=== PATIENT | male | born 1975 | race African-American/Black ===

== ENCOUNTER 2019-11-25 16:11 | Observation (INO) | payer MEDICARE ==
--- NOTE | 2019-11-25 16:55 | CT ---
CT head noncontrast HISTORY: Hypertension. Headaches. Paresthesias. FINDINGS: There is no evidence of acute intracranial hemorrhage or infarct. The ventricles appear nor mal in size, shape and position. There is no mass effect or shift of midline structures. Visualized paranasal sinuses remain well aerated. IMPRESSION : No abnormalities are demonstrated.
[2019-11-25 16:56] LABS: #Basophils 0.1 thou/uL (0.0-0.2); #Eosinphils 0.1 thou/uL (0.0-0.7); #Lymphocytes 1.3 thou/uL (1.20-3.40); #Monocytes 0.6 thou/uL (0.11-0.59); #Neutrophils 4.1 thou/uL (1.40-6.50); %Basophils 0.8 % (0.0-1.0); %Eosinophils 1.7 % (0.0-10.0); %Lymphocytes 21.8 % (21.0-51.0); %Monocytes 8.9 % (0.0-10.0); %Neutrophils 66.8 % (42.0-75.0); Hemoglobin 13.5 g/dL (14.0-18.0); Mean Corpuscular HGB CONC 33.3 g/dL (32.0-36.0); Mean Corpuscular Hemoglobin 24.1 pg (27.0-31.0); Mean Corpuscular Volume 72.4 fL (78.0-98.0); Mean Platelet Volume 9.1 fL (7.4-10.4); Platelet Count 224 thou/uL (130-400); RBC Distribution Width 14.5 % (11.5-14.5); Red Blood Cell (RBC) Count 5.63 mill/uL (4.70-6.10); White Blood Cell (WBC) Count 6.2 thou/uL (4.8-10.8)
[2019-11-25 17:01] LABS: PTT 26.1 SEC (22.9-36.1); Prothrombin Time 12.7 sec (12.0-14.7)
--- NOTE | 2019-11-25 17:15 | RAD ---
CHEST ONE VIEW: 11/25/19 HISTORY: Pain. COMPARISON: None. FINDINGS: The lungs are clear. No pneumothorax or effusion. The cardiac silhouette and mediastinal contours are within normal limits. No acute osseous abnormality. IMPRESSION: No acute intrathoracic abnormality. POS: HOME
[2019-11-25 17:16] LABS: Bilirubin, Total 0.3 mg/dL (0.2-1.2)
[2019-11-25 17:19] LABS: ALT (SGPT) 39 U/L (8-55); AST (SGOT) 29 U/L (5-34); Albumin 3.5 g/dL (3.5-5.0); Alkaline Phosphatase 70 U/L (40-110); Anion Gap 13 mmol/L (10-20); BUN (Urea Nitrogen) 7 mg/dL (8.9-20.6); CK (CPK) 579 U/L (30-200); Calc. Creatinine Clearance 0 mL/min (70-130); Calcium 8.6 mg/dL (7.8-10.44); Carbon Dioxide 24 mmol/L (22-29); Chloride 106 mmol/L (98-107); Estimated GFR-MDRD 82; Globulin 2.4 g/dL (2.4-3.5); Glucose 189 mg/dL (70-105); Potassium 3.3 mmol/L (3.5-5.1); Protein, Total 5.9 g/dL (6.0-8.3); Sodium 140 mmol/L (136-145)
--- NOTE | 2019-11-25 18:02 | PDOC.FPRHP ---
- History of Present Illness Chief Complaint: L sided weakness and altered sensation History of Present Illness: 44 y/o M with pmhx of diet controlled DM II, Schizophrenia managed by [facility], HTN , and OA, presents to ED from clinic after having the complaint of intermittent L sided weakness and altered sensation. The symptoms started X3 days ago. Today he had weakness and decreased sensation on L side for the first hour upon awakening. The symptoms came back about 2 hours later, lasting 30 minutes that time. He is symptom free upon evaluation. Pt c/o occipital MONTENEGRO, and CP associated with diaphoresis, SOB, N and V. He describes the CP as crushing. He currently does not have any CP. Pt states he takes iron pills, but has been having black, tarry diarrhea stools the past few days. Denies any slurred speech or blurred vision. c/o dizziness when bending over that has been present for a long time. ED course: CT head: no abnormalities. CXP: no acute findings CK 579 h/h 13.5/40.7 MCV 72 K 3.3 - Allergies/Adverse Reactions Allergies Allergy/AdvReac Type Severity Reaction Status Date / Time mustard Allergy Verified 11/25/19 21:54 strawberry Allergy Verified 11/25/19 21:54 raisins Allergy Uncoded 11/25/19 21:54 - Home Medications Medication Instructions Recorded Confirmed Type Aspirin [Ecotrin] 81 mg PO DAILY 11/25/19 11/25/19 History Benztropine [Cogentin] 1 mg PO [facility] 11/25/19 11/25/19 History Benztropine [Cogentin] 1.5 tab PO DAILY 11/25/19 11/25/19 History Benztropine [Cogentin] 2 tab PO 11/25/19 11/25/19 History Haloperidol [Haldol] 0.5 tab PO DAILY 11/25/19 11/25/19 History Haloperidol [Haldol] 1 tab PO 11/25/19 11/25/19 History Haloperidol [Haldol] 5 mg PO [facility] 11/25/19 11/25/19 History Sertraline HCl [Zoloft] 1 tab PO TID 11/25/19 11/25/19 History Ziprasidone HCl [Geodon] 1 cap PO DAILY 11/25/19 11/25/19 History Ziprasidone HCl [Geodon] 2 cap PO HS 11/25/19 11/25/19 History Ziprasidone HCl [Geodon] 80 mg PO ACHS 11/25/19 11/25/19 History hydrOXYzine HCl [Hydroxyzine HCl] 2 tab PO HS 11/25/19 11/25/19 History hydrOXYzine HCl [Hydroxyzine HCl] 50 mg PO HS 11/25/19 11/25/19 History - History PMHx: schizophrenia, HTN, Diet controlled DM II, OA bilateral knees PSHx: hernia repair, R-wrist sx FHx: brothers: at age 58 and 41 of NC. Father and Aunt: schizophrenia Social: smoked 2 ppd for 25 years. Smokes 3 cig a day the past year. Denies etoh use in past 15 years, used to drink heavily. Denies drug use. - Review of Systems General: reports: fatigue. denies: fever/chills Eyes: denies: eye pain, vision changes ENT: denies: nasal congestion Respiratory: reports: shortness of breath. denies: cough, exercise intolerance Cardiovascular: reports: chest pain, edema. denies: palpitation Gastrointestinal: reports: nausea, vomiting, diarrhea. denies: constipation, abdominal pain Skin: denies: rashes Musculoskeletal: reports: swelling (BLE), arthritis/arthralgias (B knees) Neurological: reports: numbness, weakness. denies: syncope, seizure Psychological: reports: other (hx of schizophrenia) - Vital signs BP: 127/80 HR: 110 RR: 18 Tmax: 98.5 F Pox: 98% on RA Wt: 148.7 KG - Physical Exam Constitutional: NAD, awake, alert and oriented HEENT: PERRLA, EOMI, conjunctiva clear, no scleral icterus, grossly normal vision, grossly normal hearing, MMM Neck: supple, trachea midline Heart: no murmurs/rubs/gallops, pulses present, other (110 HR, with regular rhythm distant heart sounds) Lungs: CTAB, no respiratory distress, good air movement, no rales/rhonchi, no wheezing, no retractions Abdomen: soft, non-tender, bowel sounds present Musculoskeletal: normal structure, normal tone, ROM grossly normal Neurological: CN II-XII intact -Neurological: Diminished sensation to L hand. Sensation intact in other extremities 4/5 strength in LLE. Skin: no rash/lesions, good turgor, capillary refill <2 seconds Heme/Lymphatic: no unusual bruising or bleeding Psychiatric: normal mood and affect, good judgment and insight, intact recent and remote memory FMR H&P: Results - Labs Result Diagrams: 11/25/19 16:38 11/26/19 04:16 Lab results: WBC 6.2 thou/uL (4.8-10.8) 11/25/19 16:38 Hgb 13.5 g/dL (14.0-18.0) L 11/25/19 16:38 Hct 40.7 % (42.0-52.0) L 11/25/19 16:38 MCV 72.4 fL (78.0-98.0) L 11/25/19 16:38 Plt Count 224 thou/uL (130-400) 11/25/19 16:38 Neutrophils % 66.8 % (42.0-75.0) 11/25/19 16:38 Sodium 140 mmol/L (136-145) 11/25/19 16:38 Potassium 3.3 mmol/L (3.5-5.1) L 11/25/19 16:38 Chloride 106 mmol/L (98-107) 11/25/19 16:38 Carbon Dioxide 24 mmol/L (22-29) 11/25/19 16:38 BUN 7 mg/dL (8.9-20.6) L 11/25/19 16:38 Creatinine 1.00 mg/dL (0.7-1.3) 11/25/19 16:38 Glucose 189 mg/dL (70-105) H 11/25/19 16:38 Calcium 8.6 mg/dL (7.8-10.44) 11/25/19 16:38 Total Bilirubin 0.3 mg/dL (0.2-1.2) 11/25/19 16:38 AST 29 U/L (5-34) 11/25/19 16:38 ALT 39 U/L (8-55) 11/25/19 16:38 Alkaline Phosphatase 70 U/L (40-110) 11/25/19 16:38 Creatine Kinase 579 U/L (30-200) H 11/25/19 16:38 Serum Total Protein 5.9 g/dL (6.0-8.3) L 11/25/19 16:38 Albumin 3.5 g/dL (3.5-5.0) 11/25/19 16:38 - EKG Interpretation EKG: NSR - Radiology Interpretation CT scan - head Status: report reviewed by me (no abnormalities) Chest x-ray Status: report reviewed by me (no acute findings) FMR H&P: A/P - Problem List (1) TIA (transient ischemic attack) Current Visit: Yes Status: Acute Code(s): G45.9 - TRANSIENT CEREBRAL ISCHEMIC ATTACK, UNSPECIFIED (2) Hx of essential hypertension Current Visit: Yes Status: Chronic Code(s): Z86.79 - PERSONAL HISTORY OF OTHER DISEASES OF THE CIRCULATORY SYSTEM (3) Diet-controlled type 2 diabetes mellitus Current Visit: Yes Status: Chronic Code(s): E11.9 - TYPE 2 DIABETES MELLITUS WITHOUT COMPLICATIONS (4) Schizophrenia Current Visit: Yes Status: Chronic Code(s): F20.9 - SCHIZOPHRENIA, UNSPECIFIED (5) Osteoarthritis of knees, bilateral Current Visit: Yes Status: Chronic Code(s): M17.0 - BILATERAL PRIMARY OSTEOARTHRITIS OF KNEE - Plan 44 y/o M admitted to [facility] for TIA/CVA Rule Out. 1. TIA, resolved - L sided weakness and parasthesias, resolved - MRI, TTE, head and neck CTA ordered - CT head no abnormalities - FLP, A1C ordered - started on 325 asa and statin 2. Hx of Schizophrenia - continue home medications - managed outpt by [facility] - stable on meds 3. Hx of Diet controlled DM II - CC diet - A1C ordered 4. Hx of HTN - not currently on meds - BP wnl here - Q4H vitals 5. Hx of B knee OA - tylenol for pain management Code status: Full code Diet: CC VTE ppx SCD's Dispo: stroke obs <2 nights. Stable FMR H&P: Upper Level - Plan Date/Time: 11/25/191801 ISteven, have evaluated this patient and agree with findings/plan as outlined by mechanical engineering intern resident. Pertinent changes/additions are listed here. This is a 44 yo male with a pmh of HTN, DM2, anxiety, and schizophrenia who presents to the ER with a cc of left sided weakness and headache. He states this has been going on for the last week on and off. He reports it happened last this morning around 10. He reports both his left leg and arm have not been working like normal. He reports a history of mini-strokes with residual deficits. He states his headache is worse when he bends over and has associate dizziness. He denies changes in his vision. He reports black stools but takes iron pills. He also reports chest pain that feels like an elephant sitting on his chest. When this happens, he has associated SOB and diaphoresis. He reports recently lost a brother from a stroke and one from an NC. Objective: Vitals: BP 124/78, HR 106, RR 16, Temp 98.4, SpO2 98 on RA, Wt 148 kg General: NAD HEENT: AT/NC, mmm Cardio: RRR Lungs: CTAB Extremities: Cap refill <2, no swelling Neuro: 4/5 strength left extremities, 5/5 on the right, DTRs normal, cerebellar functioning normal, normal HINTS exam, PEARRL Please see mechanical engineering intern note for further historical details and chronic condition management A/P TIA/CVA r/o -Admit to stroke -Multiple family and health risk factors -CT brain negative -Pending CTA head and neck and MRI, echo -FLP in the AM -Aspirin and statin therapy Chest pain -Normal EKG -troponin negative, will trend -Heart score of 2 See mechanical engineering intern note for management of chronic conditions DM2 HTN HLD Schizophrenia Anxiety Code: Full Prophylaxis: Lovenox Family: None at bedside Fluids: SL Diet: HH Disopsition: DC in 1-2 days PCP: [facility]HAM Addendum - Attending - Attending Attestation Date/Time: 11/26/19 9553 I personally evaluated the patient and discussed the management with the team. I agree with the History, Examination, Assessment and Plan documented above with any addition or exceptions noted below. The patient has clinical symptoms consistent with a stroke. He has also had significant chest pain and multiple deaths in his siblings (one younger than him ) from CV disease. He AMA'd from [facility] ER despite being advised to have a stress test. Would plan on CVA workup and then consideration of inpatient vs outpatient stress test.
[2019-11-25] MEDS ORDERED: Aspirin 325 MG TAB ONE (18:16)
[2019-11-25 18:31] LABS: Amphetamine Not Detected (NotDetected); Barbiturates Screen Not Detected (NotDetected); Benzodiazepine Screen Not Detected (NotDetected); Cocaine Metabolite Screen Not Detected (NotDetected); Medtox Control Line Valid? VALID (VALID); Medtox Reader # READER 1; Methadone Not Detected (NotDetected); Methamphetamine Not Detected (NotDetected); Opiate Screen Not Detected (NotDetected); Oxycodone Screen Not Detected (NotDetected); Phencyclidine (PCP) Not Detected (NotDetected); THC/Cannabinoid Screen Not Detected (NotDetected); Tricyclic Screen Not Detected (NotDetected)
[2019-11-25] MEDS ORDERED: Acetaminophen 325 MG TAB PO PRN (19:25)
[2019-11-25] MEDS ORDERED: Ondansetron ODT 4 MG TAB PO PRN (19:25)
[2019-11-25 20:11] LABS: Hemoglobin A1c 6.1 % (4.0-6.0)
[2019-11-25] MEDS ORDERED: Potassium Chloride 20 MEQ TAB PO SCH (20:45)
[2019-11-25] MEDS ORDERED: Nicotine 14 MG PATCH TD SCH (21:00)
[2019-11-25] MEDS ORDERED: Atorvastatin Calcium 40 MG TAB PO SCH (21:00)
[2019-11-25 21:26] LABS: Troponin I Less than 0.010 ng/mL (< 0.028)
[2019-11-25 22:04] VITALS: BMI 42.3
[2019-11-25] MEDS ORDERED: Benztropine 1 MG TAB PO SCH ×2 (23:30)
[2019-11-25] MEDS ORDERED: Haloperidol 5 MG TAB PO SCH (23:30)
[2019-11-25] MEDS ORDERED: hydrOXYzine 25 MG TAB PO SCH (23:30)
[2019-11-26 00:35] LABS: Troponin I Less than 0.010 ng/mL (< 0.028)
[2019-11-26] MEDS ORDERED: hydrALAZINE 20 MG/ML VIAL SLOW IVP SCH ×2 (04:00→06:30)
[2019-11-26 05:13] LABS: Anion Gap 12 mmol/L (10-20); BUN (Urea Nitrogen) 9 mg/dL (8.9-20.6); Calc. Creatinine Clearance 216 mL/min (70-130); Calcium 8.4 mg/dL (7.8-10.44); Carbon Dioxide 26 mmol/L (22-29); Chloride 106 mmol/L (98-107); Cholesterol 143 mg/dl (< 200 Desired); Estimated GFR-MDRD Greater than 90; Glucose 104 mg/dL (70-105); HDL Cholesterol 36 mg/dL (>60 Neg Risk); LDL Cholesterol, Calculated 93 mg/dL; Potassium 3.5 mmol/L (3.5-5.1); Sodium 140 mmol/L (136-145); Triglycerides 70 mg/dL (Less than 150)
--- NOTE | 2019-11-26 06:18 | PDOC.FM ---
- Subjective Subjective: Pt having 5/10 "crushing" chest pain this AM. + SOB, + lightheadedness. Has been occurring off/on for one week. Not associated w/ movement or activity. PCP told him it was muscle pain. Pain does not radiate. Otherwise, feels he continues to be weak on his L side in arm and leg. + tingling in L arm and leg. - Objective MAR Reviewed: Yes Vital Signs & Weight: Vital Signs (12 hours) Temp Pulse Resp BP BP Pulse Ox 11/26/19 04:05 78 181/98 H 11/26/19 03:00 97.9 F 81 18 181/98 H 98 11/25/19 23:25 99.0 F 83 20 184/112 H 96 11/25/19 21:35 98.9 F 90 16 157/94 H 97 Weight Weight 145.603 kg Result Diagrams: 11/25/19 16:38 11/26/19 04:16 Phys Exam - Physical Examination Constitutional: NAD (obese body habitus) Respiratory: no wheezing, clear to auscultation bilateral Cardiovascular: RRR, no significant murmur Musculoskeletal: no edema, pulses present 4/5 LUE/LLE strength, 5/5 RUE/RLE strength. CN II-XII intact. Psychiatric: normal affect, A&O x 3 Dx/Plan (1) TIA (transient ischemic attack) Code(s): G45.9 - TRANSIENT CEREBRAL ISCHEMIC ATTACK, UNSPECIFIED Status: Acute (2) Diet-controlled type 2 diabetes mellitus Code(s): E11.9 - TYPE 2 DIABETES MELLITUS WITHOUT COMPLICATIONS Status: Chronic (3) Hx of essential hypertension Code(s): Z86.79 - PERSONAL HISTORY OF OTHER DISEASES OF THE CIRCULATORY SYSTEM Status: Chronic (4) Osteoarthritis of knees, bilateral Code(s): M17.0 - BILATERAL PRIMARY OSTEOARTHRITIS OF KNEE Status: Chronic (5) Schizophrenia Code(s): F20.9 - SCHIZOPHRENIA, UNSPECIFIED Status: Chronic - Plan Plan: 44 y/o M admitted to [facility] for TIA/CVA Rule Out. TIA vs CVA - L sided weakness on exam this AM - MRI, TTE, head and neck CTA ordered - CT head no abnormalities - FLP wnl. - started on 325 asa and statin Chest pain - EKG, troponin ordered - nitro SL x1 this AM - overnight tele NSR in 80s bpms Hx of Schizophrenia - continue home medications - managed outpt by [facility] - stable on meds Hx of Diet controlled DM II - CC diet - A1C 6.1% Hx of HTN - not currently on meds - Q4H vitals Hx of knee OA - tylenol for pain management Code status: Full code Diet: CC VTE ppx: SCD's Dispo: stroke obs <2 nights. Stable Addendum - Attending - Attending Attestation Date/Time: 11/26/19 1301 I personally evaluated the patient and discussed the management with Dr. Cooper. I agree with the History, Examination, Assessment and Plan documented above with any addition or exceptions noted below. Patient stable. Working on BP control and awaiting MRI to determine if CVA or not. Further mgmt pending that workup.
[2019-11-26] MEDS ORDERED: Nitroglycerin 0.4 MG TAB (25 Tab Bottle) SL SCH (08:00)
[2019-11-26 08:36] LABS: Troponin I 0.017 ng/mL (< 0.028)
[2019-11-26] MEDS ORDERED: Haloperidol 5 MG TAB PO SCH ×2 (09:00→21:00)
[2019-11-26] MEDS ORDERED: Benztropine 1 MG TAB PO SCH ×2 (09:00→21:00)
[2019-11-26] MEDS ORDERED: Aspirin 325 mg Enteric Coated Tablet PO SCH (09:00)
[2019-11-26] MEDS ORDERED: Enoxaparin Sodium 40 MG/0.4 ML SYRINGE SC SCH (09:00)
[2019-11-26] MEDS ORDERED: Lisinopril 10 MG TAB PO SCH (09:45)
[2019-11-26 09:51] LABS: Iron 71 ug/dL (65-175); Iron Binding Capacity, Total 266 mcg/dL (261-462); Transferrin, Serum 213 mg/dL (174-364)
[2019-11-26 10:17] LABS: Ferritin 69.95 ng/mL (22-322)
--- NOTE | 2019-11-26 13:38 | MRI ---
MRI BRAIN WITHOUT CONTRAST: INDICATION: Hypertension. TIA. FINDINGS: The ventricles have normal size and position. No evidence of restricted diffusion. No mass or edema . No white matter abnormality. No evidence of hemorrhage. The intracranial internal carotid arteries and cerebral arteries show expected flow voids. IMPRESSION: Unremarkable MRI of brain. POS: [facility]
[2019-11-26 15:38] VITALS: TEMP 98.7
[2019-11-26] MEDS ORDERED: Amlodipine 5 MG TAB PO SCH (16:00)
[2019-11-26 16:59] VITALS: BP 152/110
[2019-11-26] MEDS ORDERED: hydrOXYzine 25 MG TAB PO SCH (21:00)
[2019-11-27] MEDS ORDERED: Lisinopril 10 MG TAB PO SCH (09:00)
--- NOTE | 2019-11-27 15:10 | EKG ---
Test Reason : Blood Pressure : / mmHG Vent. Rate : 122 BPM Atrial Rate : 122 BPM P-R Int : 174 ms QRS Dur : 082 ms QT Int : 308 ms P-R-T Axes : 047 -10 039 degrees QTc Int : 438 ms Sinus tachycardia Possible Left atrial enlargement Nonspecific T wave abnormality Abnormal ECG Left ventricular hypertrophy Confirmed by HENRRY LIN, GINO Monaco ([id number]), movie editor TON QUINTERO ([id number]) on 11/27/2019 3:09:48 PM Referred By: Confirmed By:GINO SALES MD
--- NOTE | 2019-11-28 04:49 | DIS ---
DATE OF ADMISSION: 11/25/2019 DATE OF DISCHARGE: 11/26/2019 RESIDENT: Rola Cooper MD. ADMITTING ATTENDING: Jassi Padilla MD. DISCHARGE ATTENDING: Gary Nogueira MD. CONSULTS: None. PROCEDURES: 1. Chest x-ray. No acute intrathoracic abnormality. 2. Brain CT. No abnormalities demonstrated. 3. Brain MRI, unremarkable MRI of the brain. 4. Echocardiogram. Technically limited study. Ejection fraction 55% to 60%. Impaired relaxation compatible with diastolic dysfunction (reversed E/A ratio). PRIMARY DIAGNOSES: 1. Transient ischemic attack. 2. Chest pain, resolved. 3. Uncontrolled and untreated primary hypertension. SECONDARY DIAGNOSES: 1. History of schizophrenia. 2. Type 2 diabetes, diet-controlled. 3. Knee osteoarthritis. 4. History of TIA in 2004. DISCHARGE MEDICATIONS: 1. Aspirin 325 mg p.o. daily. 2. Atorvastatin 40 mg p.o. at bedtime. 3. Amlodipine 5 mg p.o. at bedtime. 4. Lisinopril 20 mg p.o. in the morning. 5. Ziprasidone two capsules oral at bedtime and one capsule oral in the morning. 6. Hydroxyzine 2 tablets p.o. at bedtime. 7. Haldol one tablet p.o. at bedtime. 8. Sertraline one tablet p.o. three times daily. 9. Cogentin 2 tablets p.o. at bedtime and 1.5 tablets in the morning. Discontinued medications: 1. Aspirin 81 mg p.o. daily. HISTORY OF PRESENT ILLNESS AND HOSPITAL COURSE: Amaury Sanford is a pleasant 44-year-old male with a past medical history of type 2 diabetes which is diet controlled, schizophrenia well-controlled, hypertension untreated, and osteoarthritis. He presented to the emergency room after complaining of left-sided weakness in his arm and leg and altered sensation. His symptoms have been ongoing for 3 days. Therefore, he was not a candidate for tPA. The patient also complained of a headache and chest pain associated with shortness of breath, nausea, and vomiting. On admission, the patient was found to have an EKG with normal sinus rhythm. His fasting lipid panel showed normal triglycerides at 70, LDL 93, HDL 36, cholesterol 143. His A1c was 6.1. His troponins were negative. His urine drug screen was also negative. The patient's symptoms improved. However, his left lower extremity weakness remained. The patient says that this weakness has been off and on for the past week and thinks it was related to a musculoskeletal or nerve problem. It was determined that this symptom was not related to his stroke. The patient had a brain MRI which was negative. His brain CT did not show any brain bleed and his echocardiogram showed the findings as dictated above. The patient was started on two blood pressure medications which he is to take one in the morning and one at night. He is to take lisinopril in the morning and amlodipine at night. He needs close followup with his primary care provider with an appointment on Friday. DISPOSITION: Stable. DISCHARGE INSTRUCTIONS: 1. Location: Home. 2. Activity: As tolerated. 3. Diet: Diabetic and heart healthy diet. 4. Follow up with primary care provider early next week. Job ID: [id number]
== END 2019-11-26 17:49 | disposition home or self-care (01) ==
LOC: ERS 16:11 → 2SE 21:42
PROVIDERS: ADMIT Emergency Medicine; ATTEND Emergency Medicine
DX: G45.9 Transient cerebral ischemic attack, unspecified (principal); R07.9 Chest pain, unspecified; I10 Essential (primary) hypertension; E11.9 Type 2 diabetes mellitus without complications; F20.9 Schizophrenia, unspecified; F17.210 Nicotine dependence, cigarettes, uncomplicated; M17.0 Bilateral primary osteoarthritis of knee; Z91.018 Allergy to other foods; Z79.82 Long term (current) use of aspirin; Z79.899 Other long term (current) drug therapy
CPT/HCPCS: 70450; 70551; 71045; 80048; 80053; 80061; 80306; 82550; 82607; 82728; 82746; 83036; 83540; 84484 ×3; 85025; 85610; 85730; 93005 ×2; 93306; 94760; 96360; 96361; 96372; 96374; 96376; 97139 ×5; 99285; G0378 ×3; 36415; 83550; 84466; 93010; J0360; J1650

== ENCOUNTER 2020-09-28 10:55 | Outpatient (CLI) | payer MEDICARE | END 2020-09-28 10:56 | disposition home or self-care (01) | LOC: BICRAD 10:55 | PROVIDERS: ATTEND Family Medicine | DX: M17.12 Unilateral primary osteoarthritis, left knee (principal) ==

== ENCOUNTER 2022-08-09 11:57 | Emergency (ER) | payer MEDICARE ==
[2022-08-09 13:29] LABS: Hemoglobin 13.9 g/dL (14.0-18.0); Mean Corpuscular HGB CONC 33.4 g/dL (32.0-36.0); Mean Corpuscular Hemoglobin 24.5 pg (27.0-31.0); Mean Corpuscular Volume 73.5 fl (78.0-98.0); Mean Platelet Volume 9.6 fL (7.4-10.4); Platelet Count 214 10x3/uL (130-400); RBC Distribution Width 14.5 % (11.5-14.5); Red Blood Cell (RBC) Count 5.67 mill/uL (4.70-6.10); White Blood Cell (WBC) Count 4.7 10x3/uL (4.8-10.8)
[2022-08-09 13:30] LABS: #Eosinphils 0.1 thou/uL (0.0-0.7); #Lymphocytes 1.7 thou/uL (1.20-3.40); #Monocytes 0.4 thou/uL (0.11-0.59); #Neutrophils 2.5 thou/uL (1.40-6.50); %Basophils 0.3 % (0.0-1.0); %Eosinophils 2.3 % (0.0-10.0); %Lymphocytes 35.2 % (21.0-51.0); %Monocytes 8.9 % (0.0-10.0); %Neutrophils 53.3 % (42.0-75.0)
[2022-08-09 13:39] LABS: ALT (SGPT) 24 U/L (8-55); AST (SGOT) 22 U/L (5-34); Albumin 3.9 g/dL (3.5-5.0); Alkaline Phosphatase 85 U/L (40-110); Anion Gap 12 mmol/L (10-20); BUN (Urea Nitrogen) 9 mg/dL (8.9-20.6); Bilirubin, Total 0.6 mg/dL (0.2-1.2); CK (CPK) 563 U/L (30-200); Calc. Creatinine Clearance 0 mL/min (70-130); Calcium 9.4 mg/dL (7.8-10.44); Carbon Dioxide 26 mmol/L (22-29); Chloride 105 mmol/L (98-107); Estimated GFR 111; Globulin 3.3 g/dL (2.4-3.5); Glucose 87 mg/dL (70-105); Magnesium 1.9 mg/dL (1.6-2.6); Potassium 3.6 mmol/L (3.5-5.1); Protein, Total 7.2 g/dL (6.0-8.3); Sodium 139 mmol/L (136-145)
[2022-08-09] MEDS ORDERED: Acetaminophen 500 MG TAB ONE (14:48)
== END 2022-08-09 14:55 | disposition home or self-care (01) ==
LOC: ERS 11:57
DX: R07.9 Chest pain, unspecified (principal); I10 Essential (primary) hypertension; R51.9 Headache, unspecified; D72.819 Decreased white blood cell count, unspecified; F17.210 Nicotine dependence, cigarettes, uncomplicated
CPT/HCPCS: 36415; 70450; 71045; 80053; 82550; 83605; 83735; 83880; 84484; 85025; 93005; 94760

== ENCOUNTER 2023-11-24 09:53 | Outpatient (CLI) | payer MEDICARE | END 2023-11-24 09:54 | disposition home or self-care (01) | LOC: RAD 09:53 | PROVIDERS: ATTEND Internal Medicine | DX: R06.00 Dyspnea, unspecified (principal) | CPT/HCPCS: 71046 ==